=== PATIENT | female | born 1985 | race Caucasian/White ===

== ENCOUNTER 2017-04-07 17:50 | Emergency (ER) | payer SELFPAY ==
[~2017-04-07] VITALS: Ht 157.5 cm; Wt 74.0 kg
[~2017-04-07 17:50] MED LIST: NPH10OT LEFT EAR; SLF10OP15 RIGHT EYE
[2017-04-07 17:53] VITALS: Ht 157.5 cm; Wt 74.0 kg
[2017-04-07 20:18] LABS: URINE BLOOD (Dip) POC 2+ (NEGATIVE)
[2017-04-12 16:11] LABS: URINE BLOOD (Dip) POC 2+ (NEGATIVE)
--- NOTE | 2017-04-17 12:34 | ERA ---
ER Documentation Chief Complaint Date/Time DATE: 04/17/17 TIME: 12:32 Chief Complaint no menstrual cycle x 2 yrs, removed iud 2 months ago HPI 31-year-old female with a chief complaint of amenorrhea 2 years. No medical history. Patient had an IUD taken out 1-2 months ago. No other complaints at this time. Nursing notes have been reviewed and are consistent with history given. ROS All systems reviewed and are negative except as per history of present illness. Medications Home Meds Active Scripts Neomycin/Polymyxin/Hydrocort* (Cortisporin* Otic) 10 Ml Susp, 4 DROP LEFT EAR QID for 10 Days, EA Prov:KATLYN TAYLOR MD 07/30/16 Sulfacetamide Sodium* (Sulfacetamide Sodium*) 10%-15 Ml Opht Drops, 1 DROP RIGHT EYE QID for 7 Days, EA Prov:KATLYN TAYLOR MD 07/30/16 Allergies Allergies: Coded Allergies: No Known Drug Allergies (Unverified Allergy, Unknown, 07/30/16) PMhx/Soc History of Surgery: No Anesthesia Reaction: No Hx Neurological Disorder: No Hx Respiratory Disorders: Yes (Asthma) Hx Cardiac Disorders: No Hx Psychiatric Problems: No Hx Miscellaneous Medical Probl: Yes (Dyspnea) Hx Alcohol Use: No Hx Substance Use: No Hx Tobacco Use: No Smoking Status: Never smoker Physical Exam Physical Exam Const: Well-appearing, overweight 31-year-old female in no acute distress Head: Atraumatic Eyes: Normal Conjunctiva ENT: Normal External Ears, Nose and Mouth. Neck: Full range of motion..~ No meningismus. Resp: Clear to auscultation bilaterally Cardio: Regular rate and rhythm, no murmurs Abd: Soft, non tender, non distended. Normal bowel sounds Skin: No petechiae or rashes Back: No midline or flank tenderness Ext: No cyanosis, or edema Neur: Awake and alert Psych: Normal Mood and Affect Results 24 hrs Laboratory Tests Test 04/07/17 20:23 Bedside Urine pH (LAB) 5.5 Bedside Urine Protein (LAB) Negative Bedside Urine Glucose (UA) Negative Bedside Urine Ketones (LAB) Negative Bedside Urine Blood 2+ Bedside Urine Nitrite (LAB) Negative Bedside Urine Leukocyte Esterase (L Negative Procedures/MDM Otherwise healthy 31-year-old female presenting with amenorrhea 2 years. Patient had IUD taken out 1-2 months ago. Urine was obtained and was negative. At this time the most likely diagnosis is amenorrhea secondary to recent IUD use. I recommended that she follow-up with [facility]. Patient states that she has an appointment with [facility] next week. I have spoke with the patient regarding their condition and future management. They have verbally responded that they understand their status and treatment plan. The patients vitals are stable, and their current condition is appropriate for discharge. The patient will be given discharge instructions with return precautions. Departure Diagnosis: Primary Impression: Amenorrhea Condition: Stable Patient Instructions: Amenorrhea Additional Instructions: Ann-Marie un seguimiento con taylor PCP dentro de los prximos 1-3 osborne para dominick evaluaci n ms completa y dominick posible derivacin a un especialista. Devuelva el departamento de emergencia inmediatamente si los sntomas empeoran o cambian. Si tiene alguna pregunta con respecto a los medicamentos, consulte con taylor farmac utico o con nosotros antes de salir. Si se producen reacciones adversas mientras tonie tiera medicamentos, suspenda el tratamiento y regrese inmediatamente al servicio de urgencias. [place] tiera medicamentos segn las indicaciones y complete el curso completo del tratamiento. LEIGHTON HENDERSON PA-C Apr 17, 2017 12:34
== END 2017-04-07 20:50 | disposition home or self-care (01) ==
LOC: FTE 17:50
DX: N91.2 Amenorrhea, unspecified (principal); J45.909 Unspecified asthma, uncomplicated
CPT/HCPCS: 81003; 99282

== ENCOUNTER 2019-07-13 17:31 | Inpatient (IN) | payer MEDICAID ==
[~2019-07-13] VITALS: Ht 157.5 cm; Wt 90.6 kg
[~2019-07-13 17:31] MED LIST changes: +PREN-93 PO
[2019-07-13 17:38] VITALS: BP 120/63; Ht 157.5 cm; Wt 90.6 kg
[2019-07-13] MEDS ORDERED: LACTATED RINGER'S 1,000 ML IV PRN (18:52)
[2019-07-13] MEDS ORDERED: MINERAL OIL LIGHT 10 ML VIAL TOP PRN (19:00)
[2019-07-13] MEDS ORDERED: IBUPROFEN 600 MG TAB PO PRN (19:00)
[2019-07-13] MEDS ORDERED: OXYTOCIN 30 UNITS/LR 500 ML IV PRN (19:00)
[2019-07-13] MEDS ORDERED: OXYTOCIN 30 UNITS/LR 500 ML IV SCH ×3 (19:00)
[2019-07-13] MEDS ORDERED: MISOPROSTOL 200 MCG TAB PR PRN (19:00)
[2019-07-13] MEDS ORDERED: METHYLERGONOVINE 0.2 MG INJ IM PRN (19:00)
[2019-07-13] MEDS ORDERED: LIDOCAINE 1% (MPF) 30 ML INJ INJ PRN (19:00)
[2019-07-13] MEDS ORDERED: CARBOPROST 250 MCG INJ IM PRN (19:00)
[2019-07-13] MEDS: LACTATED RINGER'S 1,000 ML IV SCH (20:46)
[2019-07-14] VITALS (11 sets, daily range): BP systolic 99–122; BP diastolic 55–71; PULSE 57–110; RESP 16–20
[2019-07-14] MEDS: LACTATED RINGER'S 1,000 ML IV SCH ×2 (01:32→10:52)
[2019-07-14] MEDS ORDERED: BUTORPHANOL 2 MG INJ IV PRN (07:30)
[2019-07-14] MEDS: LACTATED RINGER'S 1,000 ML IV* SCH ×2 (08:24→12:54)
[2019-07-14] MEDS ORDERED: OXYTOCIN 30 UNITS/LR 500 ML IV SCH (08:24)
[2019-07-14] MEDS ORDERED: ACETAMINOPHEN 325 MG TAB PO PRN ×2 (08:30)
[2019-07-14] MEDS ORDERED: METHYLERGONOVINE 0.2 MG INJ IM PRN (08:30)
[2019-07-14] MEDS ORDERED: DIBUCAINE 1% 30 GM OINT TOP PRN (08:30)
[2019-07-14] MEDS ORDERED: MAGNESIUM HYDROXIDE 30ML CUP PO PRN (08:30)
[2019-07-14] MEDS ORDERED: MISOPROSTOL 200 MCG TAB PR PRN (08:30)
[2019-07-14] MEDS ORDERED: OXYTOCIN 30 UNITS/LR 500 ML IV PRN (08:30)
[2019-07-14] MEDS ORDERED: LANOLIN HPA 1 PKT TOP PRN (08:30)
[2019-07-14] MEDS ORDERED: CARBOPROST 250 MCG INJ IM PRN (08:30)
[2019-07-14] MEDS ORDERED: ONDANSETRON 4 MG INJ IV PRN (08:30)
[2019-07-14] MEDS ORDERED: WITCH HAZEL/GLYCERIN PAD PR PRN (08:30)
[2019-07-14] MEDS ORDERED: SULFACETAMIDE 10% 15 ML OPH RIGHT EYE SCH (09:00)
[2019-07-14] MEDS ORDERED: NEOMYC/POLYMYX/HC 10 ML OTIC SUSP LEFT EAR SCH (09:00)
[2019-07-14] MEDS: BENZOCAINE 20% 56 ML SPRAY TOP PRN (12:55)
[2019-07-14] MEDS: SENNA/DOCUSATE NA (8.6MG/50MG) TAB PO PRN (21:15)
[2019-07-15] VITALS (7 sets, daily range): BP systolic 91–118; BP diastolic 55–79; PULSE 63–85; RESP 18
[2019-07-15] MEDS: IBUPROFEN 600 MG TAB PO PRN ×2 (00:31→05:45)
[2019-07-15] MEDS: BENZOCAINE 20% 56 ML SPRAY TOP PRN (17:53)
[2019-07-15] MEDS: SENNA/DOCUSATE NA (8.6MG/50MG) TAB PO PRN (21:40)
[2019-07-16] MEDS: IBUPROFEN 600 MG TAB PO PRN ×2 (00:34→05:40)
[2019-07-16 03:46] VITALS: BP 100/55; PULSE 65; RESP 18
[2019-07-16 07:50] VITALS: BP 98/65; PULSE 64; RESP 18
== END 2019-07-16 14:06 | disposition home or self-care (01) | DRG 807 ==
LOC: OBT 17:31 → L-D 17:33 → OBT 18:40 → L-D 19:11 → PP1 07-14 09:45 → MERGE 07-21 14:43
PROVIDERS: ADMIT Obstetrics & Gynecology; ATTEND Obstetrics & Gynecology
PROC: 10E0XZZ Delivery of Products of Conception, External Approach (ICD-10-PCS; principal; 2019-07-14)
PROC: 3E033VJ Introduction of Other Hormone into Peripheral Vein, Percutaneous Approach (ICD-10-PCS; 2019-07-14)
DX: O36.8130 Decreased fetal movements, third trimester, not applicable or unspecified (principal); Z37.0 Single live birth; Z3A.38 38 weeks gestation of pregnancy
CPT/HCPCS: 76815; 76818; 85025; 85610; 85730; 86592; 86850; 86900; 86901; 87340; G0463; J0595; J2590; J7120